=== PATIENT | male | born 1990 | race Caucasian/White ===

== ENCOUNTER 2017-10-13 16:55 | Emergency (ER) | payer OTHER ==
[2017-10-13] MEDS ORDERED: ACETAMINOPHEN 500 MG TAB PO (19:17)
== END 2017-10-13 22:11 | disposition home or self-care (01) ==
LOC: FTE 16:55
DX: S00.452A Superficial foreign body of left ear, initial encounter (principal); S09.8XXA Other specified injuries of head, initial encounter; V49.00XA Driver injured in collision with unspecified motor vehicles in nontraffic accident, initial encounter
CPT/HCPCS: 69200; 70450; 72125; 99285-25

== ENCOUNTER 2017-10-18 14:05 | Emergency (ER) | payer OTHER | END 2017-10-18 18:17 | disposition home or self-care (01) | LOC: FTE 14:05 | DX: S09.90XA Unspecified injury of head, initial encounter (principal); R51 Headache; V89.2XXA Person injured in unspecified motor-vehicle accident, traffic, initial encounter | CPT/HCPCS: 70450; 99284-25 ==